=== PATIENT | male | born 1970 | race Caucasian/White ===

== ENCOUNTER 2018-04-13 07:21 | Inpatient (IN) | payer BC, OTHER ==
[~2018-04-13 07:21] MED LIST: GLYCOPYRROLATE 0.4 MG INJ; LIDOCAINE 2% (SDV) 5 ML INJ; NEOSTIGMINE 3 MG/3 ML SYRINGE; SOD CHLORIDE 0.9% 100 ML, TRANEXAMIC ACID 3,000 MG IRR; morphine SULFATE/PF (10 MG/10 ML) INJ
[2018-04-13] MEDS ORDERED: BUPIVACAINE 0.75%/DEXT (SPINAL) 2 ML INJ (07:59)
[2018-04-13] MEDS ORDERED: EPINEPHrine 1 MG INJ (08:00)
[2018-04-13] MEDS ORDERED: MIDAZOLAM 1 MG/ML 2 ML INJ (08:04)
[2018-04-13] MEDS: GABAPENTIN 300 MG CAP PO ×2 (08:39→21:16)
[2018-04-13] MEDS: traMADol 50 MG TAB PO (08:39)
[2018-04-13] MEDS: DEXAMETHASONE 1 MG TAB PO (08:39)
[2018-04-13] MEDS ORDERED: CA CHLORIDE 10% 10 ML SYRINGE (08:47)
[2018-04-13] MEDS ORDERED: THROMBIN 5000 UNIT VIAL (08:47)
[2018-04-13] MEDS ORDERED: PROPOFOL 20 ML (08:49)
[2018-04-13] MEDS ORDERED: MEPERIDINE 25 MG INJ IV (09:30)
[2018-04-13] MEDS ORDERED: ONDANSETRON 4 MG INJ IV ×3 (09:30→12:30)
[2018-04-13] MEDS ORDERED: FENTAnyl 50 MCG/ML VIAL IV ×3 (09:30)
[2018-04-13] MEDS ORDERED: DIPHENHYDRAMINE 50 MG INJ IV ×3 (09:30→12:30)
[2018-04-13] MEDS ORDERED: ZOLPIDEM 5 MG TAB PO ×2 (09:30→12:30)
[2018-04-13] MEDS ORDERED: MIDAZOLAM 1 MG/ML 2 ML INJ IV (09:30)
[2018-04-13] MEDS ORDERED: HYDROmorphONE 1 MG/5 ML IV SYRINGE IV ×3 (09:30)
[2018-04-13] MEDS ORDERED: METOCLOPRAMIDE 10 MG INJ IV (09:30)
[2018-04-13] MEDS ORDERED: NALOXONE (0.4 MG/ML) INJ IV (09:30)
[2018-04-13] MEDS ORDERED: OXYCODONE/ACETAMINOPHEN (5/325) TAB PO ×2 (09:30)
[2018-04-13] MEDS ORDERED: LABETALOL HCL 20MG INJ IV (09:30)
[2018-04-13] MEDS ORDERED: HYDROmorphONE 0.5 MG/0.5 ML SYG IV (09:30)
[2018-04-13] MEDS ORDERED: hydrALAzine 20 MG INJ IV (09:30)
[2018-04-13] MEDS ORDERED: EPHEDrine SULFATE 50 MG/5 ML SYG IV (09:30)
[2018-04-13] MEDS ORDERED: ALBUTEROL 0.083% (NEB) 2.5 MG/3 ML AMP HHN (09:30)
[2018-04-13] MEDS ORDERED: KETOROLAC 30 MG INJ IV (09:30)
[2018-04-13] MEDS ORDERED: CEFAZOLIN 1 GM INJ (09:49)
[2018-04-13] MEDS ORDERED: ROCURONIUM 50 MG INJ (09:49)
[2018-04-13] MEDS: CEFAZOLIN 2 GM/50 ML (PMX) 50 ML IVPB (09:50)
[2018-04-13] MEDS ORDERED: FENTAnyl 50 MCG/ML VIAL (10:04)
[2018-04-13] MEDS: TRANEXAMIC ACID 1,000 MG in DEXTROSE 5% 100 ML IVPB ×2 (10:07→10:08)
[2018-04-13] MEDS: BUPIVACAINE 0.5% (SDV) 30 ML, morphine SULFATE (PF) 8 MG, EPINEPHrine 0.3 MG, KETOROLAC... IRR (10:18)
[2018-04-13] MEDS: POLYMYXIN/BACITRACIN 1L IRRIG (10:18)
[2018-04-13] MEDS ORDERED: DEXAMETHASONE 4 MG/ML 1 ML INJ (10:19)
[2018-04-13] MEDS ORDERED: ONDANSETRON 4 MG INJ (10:19)
[2018-04-13] MEDS ORDERED: GLYCOPYRROLATE 0.4 MG INJ (11:34)
[2018-04-13] MEDS ORDERED: MAGNESIUM HYDROXIDE 30ML CUP PO (12:30)
[2018-04-13] MEDS ORDERED: ACETAMINOPHEN 500 MG TAB PO (12:30)
[2018-04-13] MEDS ORDERED: morphine 4 MG/ML VIAL IV (12:30)
[2018-04-13] MEDS ORDERED: morphine 2 MG INJ IV (12:30)
[2018-04-13] MEDS ORDERED: KETOROLAC 15 MG INJ IV (12:30)
[2018-04-13] MEDS: TRANEXAMIC ACID 1,000 MG in DEXTROSE 5% 100 ML IV (12:52)
[2018-04-13] MEDS: CEFAZOLIN 1 GM/50 ML (PMX) 50 ML IVPB ×2 (12:57→21:16)
[2018-04-13] MEDS: LACTATED RINGER'S 1,000 ML IV ×2 (12:57→17:13)
[2018-04-13 14:13] LABS: BASOPHILS % 0.3 % (0.0-2.0); EOSINOPHILS % 0.1 % (0.0-7.0); HEMATOCRIT 35.9 % (42.0-52.0); HEMOGLOBIN 12.2 g/dl (14.0-18.0); LYMPHOCYTES # 0.7 10^3/ul (0.8-2.9); LYMPHOCYTES % 5.3 % (15.0-51.0); MEAN CORPUSCULAR VOLUME 102.9 fl (82.0-101.0); MEAN PLATELET VOLUME 8.4 fl (7.4-10.4); MONOCYTE # 0.2 10^3/ul (0.3-0.9); MONOCYTES % 1.5 % (0.0-11.0); NEUTROPHIL # 12.3 10^3/ul (1.6-7.5); NEUTROPHILS % 92.1 % (39.0-77.0); PLATELET COUNT 220 10^3/UL (140-415); RED BLOOD COUNT 3.49 10^6/ul (4.70-6.10); RED CELL DISTRIBUTION WIDTH 11.8 % (11.5-14.5)
[2018-04-13 14:13] LABS: WHITE BLOOD COUNT 13.4 10^3/ul (4.8-10.8)
[2018-04-13 14:14] LABS: ADD MAN DIFF? NO
[2018-04-13 14:22] LABS: HOLD TRANSMISSIONS 1
[2018-04-13] MEDS: DEXAMETHASONE 2 MG TAB PO (17:12)
[2018-04-13] MEDS: SENNA/DOCUSATE NA (8.6MG/50MG) TAB PO (21:00)
[2018-04-14] MEDS: DEXAMETHASONE 2 MG TAB PO ×3 (00:04→12:51)
[2018-04-14] MEDS: KETOROLAC 30 MG INJ IV (00:12)
[2018-04-14] MEDS: HYDROmorphONE 0.5 MG/0.5 ML SYG IV (00:12)
[2018-04-14] MEDS: LACTATED RINGER'S 1,000 ML IV (03:00)
[2018-04-14] MEDS: CEFAZOLIN 1 GM/50 ML (PMX) 50 ML IVPB (05:28)
[2018-04-14 05:40] LABS: ADD MAN DIFF? NO
[2018-04-14 05:41] LABS: WHITE BLOOD COUNT 14.9 10^3/ul (4.8-10.8)
[2018-04-14 05:41] LABS: BASOPHILS % 0.1 % (0.0-2.0); HEMATOCRIT 30.8 % (42.0-52.0); HEMOGLOBIN 10.5 g/dl (14.0-18.0); LYMPHOCYTES # 0.6 10^3/ul (0.8-2.9); MEAN CORPUSCULAR HEMOGLOBIN 35.1 pg (29.0-33.0); MEAN CORPUSCULAR HGB CONC 34.1 g/dl (32.0-37.0); MEAN PLATELET VOLUME 8.9 fl (7.4-10.4); MONOCYTE # 0.6 10^3/ul (0.3-0.9); MONOCYTES % 3.9 % (0.0-11.0); NEUTROPHIL # 13.6 10^3/ul (1.6-7.5); NEUTROPHILS % 91.5 % (39.0-77.0); PLATELET COUNT 218 10^3/UL (140-415); RED BLOOD COUNT 2.99 10^6/ul (4.70-6.10); RED CELL DISTRIBUTION WIDTH 11.7 % (11.5-14.5)
[2018-04-14] MEDS: OXYCODONE/ACETAMINOPHEN (5/325) TAB PO ×3 (08:27→16:58)
[2018-04-14] MEDS: ASPIRIN 81 MG TAB PO (08:27)
[2018-04-14] MEDS: SENNA/DOCUSATE NA (8.6MG/50MG) TAB PO ×2 (08:27→08:30)
[2018-04-14] MEDS ORDERED: morphine LIQ (10 MG/5 ML) CUP PO ×2 (20:30)
== END 2018-04-14 19:25 | disposition home or self-care (01) | DRG 470 ==
LOC: REC 07:21 → MS1 15:43
PROVIDERS: Orthopaedic Surgery
PROC: 0SRB04A Replacement of Left Hip Joint with Ceramic on Polyethylene Synthetic Substitute, Uncemented, Open Approach (ICD-10-PCS; principal; 2018-04-13 09:40)
DX: M16.52 Unilateral post-traumatic osteoarthritis, left hip (principal)
CPT/HCPCS: 72170; 73530; 85025; 86999; 87086; 97110; 97116; 97161; 97530